=== PATIENT | female | born 1990 | race Caucasian/White ===

== ENCOUNTER → 2016-06-28 | Outpatient (CLI) | payer OTHER ==
--- NOTE | 2016-06-28 10:10 | US ---
June 28, [address] Sibley, Thank you for allowing me to see your patient Kalie Clancy for anatomy evaluation. As you know, she is a 25-year-old 1 with a dating 19 weeks 2 day(s). Her due date is 11/20/2016 based on LMP consistent with 12-week ultrasound. She has no significant medical history. She had a Sequential Screen done with the following reassuring results: Down syndrome risk 1 in 10,000, neura l tube defect risk 1 in 2,000, and trisomy 18 risk 1 in 10,000. ULTRASOUND Number of fetuses: 1 presentation: Breech Maximum vertical pocket: 4.3 cm Placenta - Appearance: Normal - Location: Anterior - Cord insertion: Intraplacental - Placenta previa: None Maternal Structures - Cervix: 4.3 cm measured transabdominally - Uterus: No obvious masses or anomaly seen - The adnexa were evaluated. No pathology was seen. -- Right ovary appears normal. It measures 2.6 x 2.0 x 1.8 cm -- Left ovary appears normal. It measures 2.2 x 2.0 x 1.5 cm Measurements Biparietal diameter: 40 mm, 18 weeks 2 days Head circumference: 159 mm, 18 weeks 6 days Abdominal circumference: 143 mm, 19 weeks 5 days Femur length: 30 mm, 19 weeks 2 days Humerus length: 29 mm, 19 weeks 4 days Transcerebellar diameter: 20 mm, 19 weeks 1 days Nasal bone: 5.5 mm Nuchal skinfold thickness: 3 mm, normal Average ultrasound age: 19 weeks 1 days Estimated weight: 286 gm weight percentile: 48 % Anatomy Head and Neck: - Cranial shape and integrity: Normal - Cerebral lateral ventricles: Normal, 6.6 mm - Choroid plexus: Normal - Midline falx: Normal - Cavum septum pellucidi: Normal - Brain parenchyma: Normal - Cerebellum: Normal - Cisternal Magna: Normal, 4 mm - Cerebellar vermis: Normal - Neck: Normal Face: - Upper lip: Normal - Profile: Normal - Coronal face: Normal - Alveolar ridge: Normal Heart: - 4-chamber view: Normal - LVOT: Normal - RVOT: Normal - Aortic arch: Normal - SVC/IVC: Normal - 3 vessel view: Normal - Interventricular septum: Appears normal in limited views - heart rate: 152 bpm Lungs: Normal Diaphragm: Normal Abdomen: - Stomach: Normal - Kidneys: Right: Normal, Left: Normal - Bladder: Normal - Abdominal Cord Insertion: Normal - Umbilical cord vessel number: 3 - Liver: Normal Spine: - Cervical: Normal - Thoracic: Normal - Lumbar: Normal - Sacral: Normal - Shape and curvature: Normal Extremities: - Right upper extremity: Normal architecture and position - Right Hand: Normal - Left upper extremity: Normal architecture and position - Left Hand: Normal - Right lower extremity: Normal architecture and position - Right foot: Normal - Left lower extremity: Normal architecture and position - Left foot: Normal Genitalia: Male Impression: 1. Intrauterine at 19 weeks 2 day(s), ultrasound is consistent with her established CORONA of 11/20/2016. 2. Anatomy: The fetus measures appropriate for gestational age, measuring a normal weight and percen tile. Visualization of the fetus today reveals no overt structural anomalies. Views of the interventr icular septum were somewhat limited due to position. There is evidence of normal amniotic flui d, and movement was seen during the examination. 3. Cervical length is normal at 4.3 cm without evidence of insufficiency. Recommendations: I was pleased to share today's ultrasound results with Kalie and her . I will leave further ultrasound follow-up to your clinical discretion. If you would like us to reevaluate her at a later date we would be happy to do so. Thank you for allowing us the opportunity to evaluate your patient. Should you have any further ques tions or concerns please do not hesitate to contact me. No E&M for this encounter. Deborah Borden M.D., Ph.D. [employer] Worker Department of Obstetrics and Gynecology [facility]
--- NOTE | 2016-06-28 18:56 | US ---
Complete Detailed Obstetrical Sonography CLINICAL HISTORY: 25-year-old female who presents for a anatomic survey and biometry. TECHNIQUE: A curvilinear 5 MHz transducer was used to sonographically evaluate the fetus and the plac enta. M-mode Doppler is used. Dr. Deborah Borden is present. Multiple cine clips are acquired and st ored on PACS. COMPARISON STUDY: First trimester obstetrical sonography, dated May 10, 2016. LMP: February 14, 2016, indicating an age of 19 weeks 2 days, and an estimated date of delivery of 2016. FINDINGS: There is a single viable intrauterine gestation, with the fetus currently breech in present ation. The maternal cervical length is normal, measured transabdominally at 3.8 cm. The placenta is l ocated anteriorly, and terminates 1.9 cm from the cervical os, with no evidence of placenta previa. T he amniotic fluid volume is appropriate, with a maximal vertical pocket of 4.3 cm. The heart ra te is normal, measuring 152 bpm. The maternal left ovary measures 2.3 x 2.0 x 1.5 cm, and the materna l right ovary measures 2.6 x 2.0 x 1.8 cm. There is a normal three-vessel cord with intraplacental co rd insertion. The anatomic survey reveals a normal appearance to the craniovertebral axis. The lateral ventri cular diameter is normal, measuring 6.6 mm. The cisterna magna measures 4.0 mm, and the nuchal fold m easures 3.0 mm. The nasal-labial anatomy, sagittal and coronal facial profiles, and the alveola r ridge appear normal. There is a 4 chambered heart with right and left ventricular outflow tracts, i nterventricular septum, three-vessel tracheal view, inflow tracts, and aortic arch. The diaphragm is intact. The stomach, right and left kidneys, urinary bladder, and upper and lower extremities appear normal. The gender is male. The biometry is as follows: The biparietal diameter is 40 mm, corresponding to an age of 18 weeks 2 days +/- 1 week 6 days, which is at the 12th percentile. The head circumference is 159 mm, corresponding to an age of 18 weeks 6 days +/- 1 week 4 days, which is at the 18th percentile. The abdominal circumference is 143 mm, corresponding to an age of 19 weeks 5 days +/- 2 weeks 1 day, which is at the 57th percentile. The femur length is 30 mm, corresponding to an age of 19 weeks 2 days +/- 1 week 6 days, which is at the 40th percentile. The humeral length is 29 mm, corresponding to an age of 19 weeks 4 days, and the transverse cerebella r diameter is 20 mm, corresponding to an age of 19 weeks 1 day +/- 1 week 0 days for a composite gest ational age of 19 weeks 1 day, which is concordant with menstrual dating and also demonstrating appro priate interval growth since May 10, 2016. The estimated weight is 286 gm +/- 42 gm which is 10 ounces +/- 1 ounce, which is at the 48th p ercentile. The head circumference to abdominal circumference ratio is normal, measuring 1.11. The femur length t o biparietal diameter ratio is normal, measuring 74%, and the femur length to abdominal circumference ratio is 21%. Impression: There is a single viable intrauterine gestation with no overt structural anomaly mauricio ving biometry concordant with menstrual dating, a normal amniotic fluid volume, and demonstrating didier ropriate interval growth since May 10, 2016. Please also refer to Dr. Borden separate assessments and specific recommendations for follow up.
== END ==
LOC: FIMAGING 07:46
PROVIDERS: ATTEND Obstetrics & Gynecology
DX: Z36 Encounter for antenatal screening of mother (principal); Z3A.19 19 weeks gestation of pregnancy

== ENCOUNTER 2016-10-25 23:35 | Inpatient (IN) | payer OTHER ==
[2016-10-26] MEDS ORDERED: OXYTOCIN/RINGERS LACTATE 1,000 ML IV PRN (00:07)
[2016-10-26] MEDS ORDERED: LR 1,000 ML IV PRN (00:07)
[2016-10-26] MEDS ORDERED: OLIVE OIL 118 ML BTL MISC PRN (00:07)
[2016-10-26] MEDS ORDERED: LIDOCAINE 1% 30 ML SDV SC PRN (00:07)
[2016-10-26] MEDS ORDERED: EPSOM SALT 454 GM TP PRN (00:07)
[2016-10-26] MEDS ORDERED: AMPICILLIN SODIUM 2 GM in NS 100 ML IV ONE (00:07)
[2016-10-26] MEDS ORDERED: TERBUTALINE SULFATE 1 MG/ML VIAL IV PRN (00:07)
[2016-10-26] MEDS ORDERED: BETAMETHASONE IM SYRINGE IM ONE (00:16)
[2016-10-26] MEDS ORDERED: OLIVE OIL 118 ML BTL ONE (00:37)
[2016-10-26] MEDS ORDERED: LIDOCAINE 1% 30 ML SDV ONE (00:37)
[2016-10-26] MEDS ORDERED: AMMONIA AROMATIC 1 EACH AMP IH ONE (00:37)
[2016-10-26] MEDS ORDERED: TERBUTALINE SULFATE 1 MG/ML VIAL ONE (00:37)
[2016-10-26] MEDS ORDERED: OXYTOCIN 10 UNIT/ML VIAL ONE (00:38)
[2016-10-26] MEDS ORDERED: MISOPROSTOL 200 MCG TAB ONE (00:38)
[2016-10-26 01:11] LABS: ADD DIFF? YES; ADD MORPH? NO; ADD SCAN? NO; ATYPICAL LYMPHOCYTE FLAG 0 (0-99); FRAGMENT RBC FLAG 0 (0-99); HEMOGLOBIN 14.1 g/dL (12.6-16.3); LEFT SHIFT FLG 10 (0-99); LIPEMIA HEMOLYSIS FLAG 90 (0-99); MEAN CELL HEMOGLOBIN 33.3 pg (27.9-34.1); MEAN CELL HEMOGLOBIN CONCENTR. 35.3 g/dL (32.4-36.7); MEAN CELL VOLUME 94.3 fL (81.5-99.8); MEAN PLATELET VOLUME 11.6 fL (8.7-11.7); PLATELET CLUMPS FLAG 0 (0-99); PLATELET COUNT 203 10^3/uL (150-400); RED BLOOD CELL COUNT 4.24 10^6/uL (4.18-5.33); RED CELL DISTRIBUTION WIDTH 12.9 % (11.5-15.2)
[2016-10-26 01:52] LABS: GIANT PLATELETS PRESENT
[2016-10-26 01:56] LABS: LARGE PLATELETS PRESENT; PLATELET ESTIMATE ADEQUATE (ADEQ)
--- NOTE | 2016-10-26 02:34 | OBPROG ---
OBG Progress Note Assessment/Plan: Assessment:cat 1 fhr clear fluid pain well managed 100/-1 gbs positive ist dose of antibiotics Plan:expectant management of labor 10/26/16 02:32 Subjective: Doing well. Coping well with the contractions. In the tub for pain relief Objective: 10/26/16 00:50 Patient ABO/Rh O POSITIVE 10/26/16 00:50 - SVE Dilation (cm): 7 Effacement (%): 100 Station: -1 Current Contraction Pattern: Regular FHR (bpm): 135 FHR Pattern Variability: Moderate FHR Category: 1 Membranes: SROM Amniotic Fluid Color: Clear - Physical Exam General Appearance: WD/WN, alert, no apparent distress Respiratory: chest non-tender, lungs clear, normal breath sounds Cardiac/Chest: regular rate, rhythm Abdomen: normal bowel sounds Extremities: normal range of motion, Franky's sign (negative bilaterally) DTR- Lower Extremities: Knee (R): 1+, Knee (L): 1+ Skin: normal color, warm/dry Neuro/Psych: no motor/sensory deficits, alert, normal mood/affect, oriented x 3 ICD10 Worksheet Patient Problems: Problems Problem Status Onset PROM w/onset labor within 24 hours rupture in 3rd trimester Acute - ICD10 Problem Qualifiers (1) PROM w/onset labor within 24 hours rupture in 3rd trimester
--- NOTE | 2016-10-26 04:10 | GHP ---
[f rep st] HISTORY AND PHYSICAL DATE OF ADMISSION: 10/25/2016 HISTORY OF PRESENT ILLNESS: The patient is a 1, para 0, with an EDC of 11/20/2016. The patient's gestational age is 36 and 2/7 weeks who comes in with complaint of rupture of membranes since 2129 on 10/25/2016. Contractions began at 2144 on 10/25/2016. The patient was a transfer from [facility] to us at 30 weeks gestational age. States feeling positive movement. Leaking clear fluid. Denies bloody show. PAST MEDICAL HISTORY: Benign. SURGICAL HISTORY: The patient had exploratory laparotomy in 2009 for a colonoscopy that did not go well. Gynecological history is benign. SOCIAL HISTORY: Patient is . Denies smoking, denies drug use. FAMILY HISTORY: Benign. HISTORY: Patient is a G1, P0, with no significant history. On admit, the patient was 4 to 5 cm, 75% effaced, -1 station and cephalic. PHYSICAL ASSESSMENT: The patient is awake, alert, oriented x3. LUNGS: Clear bilaterally. Bowel sounds are positive in all 4 quadrants. DTRs are +1 bilaterally. No clonus. Homans sign is negative. Contractions are 2-3 minutes. Coping well through contractions. Exam initially for me was 7 cm at 0230, 90% effaced, -1 station, cephalic. LABS: Patient has hematocrit of 40. The patient is O positive, antibody negative. RPR is nonreactive. Gonorrhea and chlamydia are negative. HIV is negative. Rubella is immune. PLAN OF CARE: 1. Treatment for GBS because of unknown GBS status. 2. Expectant management of labor. 3. Pain medication as patient requests. 4. Consult Dr. Anastasia Maldonado on plan of care if needed. /[id number]/MODL MTDD
[2016-10-26] MEDS ORDERED: SIMETHICONE 80 MG TAB CHEW PO PRN (04:37)
[2016-10-26] MEDS ORDERED: HYDROCODONE/APAP 5/325 TAB PO PRN (04:37)
[2016-10-26] MEDS ORDERED: ACETAMINOPHEN 325 MG TAB PO PRN (04:37)
[2016-10-26] MEDS ORDERED: HYDROCORTISONE 0.5% CREAM TP PRN (04:37)
--- NOTE | 2016-10-26 04:41 | OBPROC ---
- Labor and Delivery Onset of Contractions Date: 10/26/16 Onset of Contractions Time: 21:45 Onset of Contractions Type: Spontaneous Rupture of Membranes Date: 10/25/16 Rupture of Membranes Time: 21:00 Rupture of Membranes Type: Spontaneous Amniotic Fluid Color: Clear Dilation Complete Time: 02:52 Placenta Delivery Date: 10/26/16 Placenta Delivery Time: 04:17 Episiotomy/Laceration: Other (Specify) (vaginal tear. one stitch) Repair: 3-0, Vicryl EBL: 300 - Medications Labor Augmentation/Induction Meds Used: None Anesthesia: Local (Specify) - [facility] Infant A Delivery Date: 10/26/16 Delivery Time: 04:11 Sex of Infant: Male Score (1 Min): 8 Score (5 Min): 9 (betamethasone x 1 dose. antibiotics x1 dose. Not adequetely treated before delivery. Unknown GBS)
[2016-10-26] MEDS: IBUPROFEN 600 MG TAB PO PRN ×3 (04:51→17:53)
[2016-10-26] MEDS: DOCUSATE SODIUM 100 MG CAP PO PRN (11:01)
[2016-10-27] MEDS: IBUPROFEN 600 MG TAB PO PRN ×4 (00:25→18:26)
[2016-10-27] MEDS: DOCUSATE SODIUM 100 MG CAP PO PRN ×2 (12:16→18:26)
--- NOTE | 2016-10-27 12:47 | SOAPPROG ---
SOAP Progress Note Assessment/Plan: Assessment: ppd# 1 s/p breast feeding Plan: routine post care 10/27/16 12:45 Subjective: patient is doing great. pain is well controlled. normal lochia. denies headache and changes in vision. breast feeding is going well. ambulating. Objective: Vital Signs Temp Pulse Resp BP Pulse Ox 36.4 C 81 18 105/73 96 10/27/16 08:00 10/27/16 08:00 10/27/16 08:00 10/27/16 08:00 10/26/16 20:00 Laboratory Results 10/26/16 00:50 10/26/16 10/27/16 10/28/16 05:59 05:59 05:59 Output Total 300 Balance -300 Physical Exam - Physical Exam General Appearance: WD/WN, alert, no apparent distress Respiratory: chest non-tender, lungs clear, normal breath sounds Cardiac/Chest: normal peripheral pulses, regular rate, rhythm Abdomen: normal bowel sounds, non-tender, soft Skin: normal color, warm/dry Extremities: normal range of motion, non-tender, normal inspection, normal capillary refill Neuro/Psych: no motor/sensory deficits, alert, normal mood/affect, oriented x 3 ICD10 Worksheet Patient Problems: Problems Problem Status Onset PROM w/onset labor within 24 hours rupture in 3rd trimester Acute
[2016-10-27 20:24] VITALS: RESP 16
[2016-10-28] MEDS: DOCUSATE SODIUM 100 MG CAP PO PRN (08:05)
[2016-10-28 08:33] VITALS: BP 93/62; PULSE 71; TEMP 97.1; O2SAT 98
--- NOTE | 2016-10-28 10:02 | SOAPPROG ---
SOAP Progress Note Assessment/Plan: Assessment: ppd# 2 s/p breast feeding constipation and hemrrhoids Plan: routine post care discharge instructions discussed stool softeners, miralax and flax oil for constipation call if hemrrhoids dont improve in the next few days or if they worsen 10/28/16 10:00 Subjective: patient is doing well. pain is well controlled. normal lochia. breast feeding is going well. denies headache and changes in vision. ready to go home. having some hemrrhoid pain. long hx of constipation. discussed management options. Objective: Vital Signs Temp Pulse Resp BP Pulse Ox 36.2 C 71 16 93/62 L 98 10/28/16 08:32 10/28/16 08:32 10/28/16 08:32 10/28/16 08:32 10/28/16 08:32 Laboratory Results 10/28/16 05:35 10/27/16 10/28/16 10/29/16 05:59 05:59 05:59 Output Total 300 Balance -300 Physical Exam - Physical Exam General Appearance: WD/WN, alert, no apparent distress Respiratory: chest non-tender, lungs clear, normal breath sounds Cardiac/Chest: normal peripheral pulses, regular rate, rhythm Abdomen: normal bowel sounds, non-tender, soft, other (fundus firm and non tender) Skin: normal color, warm/dry Extremities: normal range of motion, non-tender, normal inspection, normal capillary refill Neuro/Psych: no motor/sensory deficits, alert, normal mood/affect, oriented x 3 ICD10 Worksheet Patient Problems: Problems Problem Status Onset PROM w/onset labor within 24 hours rupture in 3rd trimester Acute
[2016-10-28] MEDS: IBUPROFEN 600 MG TAB PO PRN (11:53)
== END 2016-10-28 12:15 | disposition home or self-care (01) | DRG 775 ==
LOC: OBSVTOIN 23:35 → FLD 23:35 → FOB 10-26 08:16
PROVIDERS: ADMIT Obstetrics & Gynecology; ATTEND Obstetrics & Gynecology
PROC: 0UQG7ZZ Repair Vagina, Via Natural or Artificial Opening (ICD-10-PCS; principal; 2016-10-25)
PROC: 10E0XZZ Delivery of Products of Conception, External Approach (ICD-10-PCS; principal; 2016-10-25)
DX: O42.913 Preterm premature rupture of membranes, unspecified as to length of time between rupture and onset of labor, third trimester (principal); O69.2XX0 Labor and delivery complicated by other cord entanglement, with compression, not applicable or unspecified; O71.4 Obstetric high vaginal laceration alone; Z3A.36 36 weeks gestation of pregnancy; Z37.0 Single live birth
CPT/HCPCS: G0463; J0290; J0702; J2590; J3105